=== PATIENT | female | born 1975 | race Caucasian/White ===

== ENCOUNTER 2022-06-16 12:22 | Inpatient (IN) | payer OTHER ==
[~2022-06-16] VITALS: Ht 320 cm; Wt 63.7 kg
[2022-06-16] MEDS ORDERED: ONDANSETRON HCL 4MG/2ML INJ IV STA (12:43)
[2022-06-16] MEDS ORDERED: MORPHINE SULFATE 4 MG/ML CPJ (NOT FOR IM USE) IV STA (12:43)
[2022-06-16] MEDS ORDERED: SODIUM CHLORIDE 0.9% 1,000 ML IV ONE (12:45)
[2022-06-16 13:45] LABS: CHLORIDE 102 mEq/L (98-107); HEMATOCRIT. 41.1 % (36.0-48.0); HEMOGLOBIN. 13.6 g/dL (12.0-16.0); MEAN CORPUSCULAR HEMOGLOBIN 28.4 pg (28.0-32.0); MEAN CORPUSCULAR VOLUME 85.9 fL (81.0-99.0); MEAN PLATELET VOLUME 9.3 fl (7.4-10.4); PLATELET 220 x1000/uL (130-400); RED BLOOD CELL COUNT 4.79 mill/uL (4.2-5.4); RED CELL DISTRIBUTION WIDTH 13.7 % (11.6-14.6)
[2022-06-16 13:55] LABS: CLARITY URINE CLEAR (CLEAR); COLOR URINE YELLOW (YELLOW); KETONES URINE TRACE (NEGATIVE); LEUKOCYTE ESTERASE URINE NEGATIVE (NEGATIVE); NITRITE URINE NEGATIVE (NEGATIVE); OCCULT BLOOD URINE NEGATIVE (NEGATIVE); PH URINE 7.5 (4.5-8.0); PROTEIN URINE NEGATIVE (NEGATIVE); UROBILINOGEN URINE 0.2 E.U./dL (0.2-1.0)
[2022-06-16 14:01] LABS: HCG SCREEN NEGATIVE
[2022-06-16 14:17] LABS: PLATELET ESTIMATE NORMAL
[2022-06-16] MEDS ORDERED: MORPHINE SULFATE 2 MG/ML CPJ (NOT FOR IM USE) IV PRN (18:30)
[2022-06-16] MEDS ORDERED: ACETAMINOPHEN 325MG TABLET PO PRN (18:30)
[2022-06-16] MEDS ORDERED: ONDANSETRON HCL 4MG/2ML INJ IV PRN (18:30)
[2022-06-16] MEDS ORDERED: IPRATROPIUM/ALBUTEROL 0.5-3(2.5)MG/3ML NEB HHN PRN (18:30)
[2022-06-16] MEDS ORDERED: CLONIDINE 0.1MG TABLET PO PRN (18:30)
[2022-06-16] MEDS ORDERED: NALOXONE HCL 0.4MG/ML VIAL IV PRN (19:00)
[2022-06-16] MEDS: CEFTRIAXONE 1,000 MG in DEXTROSE 5% WATER 50 ML IV SCH (20:30)
[2022-06-16] MEDS ORDERED: MORPHINE SULFATE 4 MG/ML CPJ (NOT FOR IM USE) IV PRN (20:43)
[2022-06-17] VITALS: BP 114/57
[2022-06-17 07:41] LABS: HEMATOCRIT. 38.2 % (36.0-48.0); HEMOGLOBIN. 12.6 g/dL (12.0-16.0); MEAN CORPUSCULAR HEMOGLOBIN 28.3 pg (28.0-32.0); MEAN CORPUSCULAR VOLUME 85.7 fL (81.0-99.0); MEAN PLATELET VOLUME 9.1 fl (7.4-10.4); PLATELET 194 x1000/uL (130-400); RED BLOOD CELL COUNT 4.46 mill/uL (4.2-5.4); RED CELL DISTRIBUTION WIDTH 13.6 % (11.6-14.6)
[2022-06-17 07:43] LABS: CHLORIDE 104 mEq/L (98-107)
[2022-06-17 08:00] VITALS: BP 138/94
[2022-06-17] MEDS ORDERED: KETOROLAC 15MG/ML VIAL IV PRN (08:45)
[2022-06-17] MEDS ORDERED: DEXT 5%/0.45% NACL 500ML 500 ML IV SCH (09:00)
[2022-06-17] MEDS ORDERED: SODIUM CHLORIDE 0.9% 1,000 ML IV SCH (09:00)
[2022-06-17] MEDS ORDERED: CEFTRIAXONE 1 G PREMIX 50 ML IV ONE (09:52)
[2022-06-17] MEDS ORDERED: HYDROMORPHONE HCL/PF 2MG/ML CPJ ONE (10:06)
[2022-06-17] MEDS ORDERED: IOPAMIDOL 61% 300/15 ML VIAL IT ONE ×2 (10:15→10:16)
[2022-06-17 10:18] LABS: PLATELET ESTIMATE NORMAL
[2022-06-17] MEDS ORDERED: POTASSIUM CHLORIDE 20MEQ TABLET SR PO NR ×2 (10:45→17:30)
[2022-06-17] MEDS ORDERED: DEXAMETHASONE 4MG/ML 1ML VIAL ONE (11:04)
[2022-06-17] MEDS ORDERED: KETOROLAC 30MG/ML VIAL ONE (11:04)
[2022-06-17] MEDS ORDERED: ACETAMINOPHEN 325MG TABLET PO PRN (11:15)
[2022-06-17] MEDS ORDERED: PHENAZOPYRIDINE HCL 100MG TABLET PO PRN (11:15)
[2022-06-17 13:10] VITALS: BP 119/66
[2022-06-17 13:40] VITALS: BP 124/64
[2022-06-17] MEDS ORDERED: IBUP-2029 MT (15:11)
[2022-06-17] MEDS ORDERED: ACET-3163 MT (15:11)
[2022-06-17] MEDS ORDERED: LEVO750T46 MT (15:11)
[2022-06-17 16:51] LABS: INR 1.1; PROTHROMBIN TIME 11.8 sec (9.6-11.0)
[2022-06-17] MEDS: CEFTRIAXONE 1,000 MG in DEXTROSE 5% WATER 50 ML IV SCH (17:39)
[2022-06-17 18:48] VITALS: BP 104/81
== END 2022-06-17 21:10 | disposition home or self-care (01) | DRG 660 ==
LOC: ER 13:05 → EDBEDREQ 17:35 → ENRESERV 19:45 → 6EST 22:30
PROVIDERS: ADMIT Internal Medicine; ATTEND Internal Medicine
PROC: 0T768DZ Dilation of Right Ureter with Intraluminal Device, Via Natural or Artificial Opening Endoscopic (ICD-10-PCS; principal; 2022-06-17)
PROC: 0TN68ZZ Release Right Ureter, Via Natural or Artificial Opening Endoscopic (ICD-10-PCS; 2022-06-17)
PROC: BT1D1ZZ Fluoroscopy of Right Kidney, Ureter and Bladder using Low Osmolar Contrast (ICD-10-PCS; 2022-06-17)
DX: N13.2 Hydronephrosis with renal and ureteral calculous obstruction (principal); E87.1 Hypo-osmolality and hyponatremia; D72.825 Bandemia; E11.65 Type 2 diabetes mellitus with hyperglycemia; I10 Essential (primary) hypertension; Z87.442 Personal history of urinary calculi
CPT/HCPCS: 36415; 74176; 74430; 80053; 81003; 84484; 84703; 85025; 86850; 86900; 99285; C1769; C2617; J0696; J1100; J1170; J1885; J2270; J2405; J7030; J7060; Q9967